=== PATIENT | male | born 1960 | race Caucasian/White ===

== ENCOUNTER 2016-06-27 17:57 | Emergency (ER) | payer OTHER ==
[2016-06-27 17:58] VITALS: BMI 35.9
[2016-06-27 18:18] VITALS: BP 105/69; PULSE 76; RESP 16; TEMP 98.1; O2SAT 97
[2016-06-27] MEDS ORDERED: TDAP Vaccine 0.5 mL Syr IM ONE (18:20)
[2016-06-27] MEDS ORDERED: Amoxicillin-Clav 875-125 mg Tab PO STA (18:20)
--- NOTE | 2016-06-27 18:23 | ED PDOC ---
Arrival/HPI - General Chief Complaint: Lower Extremity Problem/Injury Time Seen by Provider: 06/27/16 18:20 Historian: Patient - History of Present Illness Narrative History of Present Illness (Text): 06/27/16 18:21 55yo male with multiple co morbidities present with complaint of nail puncture to his left foot. States a nail went through his shoes, while working on his garden an hour [employer]. States he quickly pulled out his foot, as soon as he felt the nail puncture. He is not Up to date with his TD booster. Denies any other complaint. Past Medical History - Provider Review Nursing Documentation Reviewed: Yes - Cardiac Hx Cardiac Disorders: Yes Hx Angina: Yes Hx Circulatory Problems: Yes Hx Hypertension: Yes Hx Pacemaker: No Other/Comment: stents X4 - Pulmonary Hx Respiratory Disorders: No - Neurological Hx Neurological Disorder: No - HEENT Hx HEENT Disorder: No - Renal Hx Renal Disorder: No - Endocrine/Metabolic Hx Endocrine Disorders: Yes Hx Diabetes Mellitus Type 2: Yes - Hematological/Oncological Hx Blood Disorders: Yes Hx Anemia: Yes - Integumentary Hx Dermatological Disorder: No - Musculoskeletal/Rheumatological Hx Musculoskeletal Disorders: Yes Hx Back Pain: Yes - Gastrointestinal Hx Gastrointestinal Disorders: Yes Other/Comment: chronic constipation - Genitourinary/Gynecological Hx Genitourinary Disorders: Yes Hx Prostate Cancer: Yes Other/Comment: frequency - Psychiatric Hx Psychophysiologic Disorder: No Hx Depression: No Hx Emotional Abuse: No Hx Physical Abuse: No Hx Substance Use: No - Surgical History Hx Coronary Stent: Yes Other/Comment: monthly back injections - Anesthesia Hx Anesthesia: Yes Hx Anesthesia Reactions: No Hx Malignant Hyperthermia: No - Suicidal Assessment Feels Threatened In Home Enviroment: No Family/Social History - Physician Review Nursing Documentation Reviewed: Yes Family/Social History: Unknown Family HX Smoking Status: Never Smoked Hx Alcohol Use: No Hx Substance Use: No Hx Substance Use Treatment: No Allergies/Home Meds Allergies/Adverse Reactions: Allergies No Known Allergies Allergy (Verified 06/27/16 18:12) Home Medications: Home Meds Medication Instructions Recorded Confirmed Ergocalciferol [Vitamin D] 50,000 iu PO SUN 12/09/11 06/27/16 Isosorbide [Isosorbide] 60 mg PO DAILY 12/09/11 06/27/16 Lisinopril 50 mg PO DAILY 12/09/11 06/27/16 Metoprolol Tartrate [Lopressor] 50 mg PO DAILY 12/09/11 06/27/16 Clopidogrel Hydrogen Sulfate 75 mg PO QAM 01/16/12 01/16/12 [Plavix] Nitroglycerin [Nitroquick] 0.4 mg SL PRN PRN 04/23/12 06/27/16 Simvastatin 40 mg PO HS 04/23/12 06/27/16 Metformin HCl [Glucophage] 1,000 mg PO BID 06/27/16 06/27/16 Review of Systems - Physician Review All systems were reviewed & negative as marked: Yes - Review of Systems Constitutional: Normal Eyes: Normal ENT: Normal Respiratory: Normal Cardiovascular: Normal Gastrointestinal: Normal Genitourinary Male: Normal Musculoskeletal: Normal Skin: Other (Nail puncture) Neurological: Normal Endocrine: Normal Hemo/Lymphatic: Normal Psychiatric: Normal Physical Exam Vital Signs Reviewed: Yes Vital Signs Temp Pulse Resp BP Pulse Ox 06/27/16 18:13 98.1 F 76 16 105/69 97 Temperature: Afebrile Blood Pressure: Normal Pulse: Regular Respiratory Rate: Normal Appearance: Positive for: Well-Appearing, Non-Toxic, Comfortable Pain Distress: None Mental Status: Positive for: Alert and Oriented X 3 - Systems Exam Head: Present: Atraumatic, Normocephalic Pupils: Present: PERRL Extroacular Muscles: Present: EOMI Conjunctiva: Present: Normal Mouth: Present: Moist Mucous Membranes Neck: Present: Normal Range of Motion Respiratory/Chest: Present: Clear to Auscultation, Good Air Exchange. No: Respiratory Distress, Accessory Muscle Use Cardiovascular: Present: Regular Rate and Rhythm, Normal S1, S2. No: Murmurs Abdomen: Present: Normal Bowel Sounds. No: Tenderness, Distention, Peritoneal Signs Back: Present: Normal Inspection Upper Extremity: Present: Normal Inspection. No: Cyanosis, Edema Lower Extremity: Present: Normal Inspection. No: Edema Neurological: Present: GCS=15, CN II-XII Intact, Speech Normal Skin: Present: Warm, Dry, Normal Color, Other (Puncture wound noted on left plantar foot). No: Rashes Psychiatric: Present: Alert, Oriented x 3, Normal Insight, Normal Concentration Disposition/Present on Arrival - Present on Arrival Any Indicators Present on Arrival: No History of DVT/PE: No History of Uncontrolled Diabetes: Yes Urinary Catheter: No History of Decub. Ulcer: No History Surgical Site Infection Following: None - Disposition Have Diagnosis and Disposition been Completed?: Yes Diagnosis: Puncture wound Disposition: HOME/ ROUTINE Disposition Time: 18:25 Patient Plan: Discharge Condition: STABLE Discharge Instructions (ExitCare): Puncture Wound (ED) Additional Instructions: Follow up with your doctor Return to ED for any new or worsening symptoms Prescriptions: Amoxicillin/Clavulanate [Augmentin 875 MG-125 MG] 1 tab PO BID #20 tab Referrals: Jeannette Mullins MD [Staff Provider] - Follow up with primary
== END 2016-06-27 19:11 | disposition home or self-care (01) ==
LOC: ED 17:57
DX: S91.332A Puncture wound without foreign body, left foot, initial encounter (principal); W45.0XXA Nail entering through skin, initial encounter; Y93.89 Activity, other specified; Y92.007 Garden or yard of unspecified non-institutional (private) residence as the place of occurrence of the external cause; Z23 Encounter for immunization

== ENCOUNTER 2016-09-13 02:50 | Emergency (ER) | payer OTHER ==
[2016-09-13 02:51] VITALS: BMI 35.9
[2016-09-13 03:12] VITALS: TEMP 98.4
--- NOTE | 2016-09-13 03:49 | ED PDOC ---
Arrival/HPI - General Chief Complaint: Abdominal Pain Time Seen by Provider: 09/13/16 02:53 - History of Present Illness Narrative History of Present Illness (Text): 09/13/16 03:46 Oscar Gant is a 55 year old male, whose past medical history includes CAD with stents, hypertension, hyperlipidemia, and diabetes, who presents to the Emergency department complaining of upper abdominal discomfort for the past 2 hours. Patient notes he has been fasting all day and ate at 20:30. Patient reports associated nausea and vomiting earlier, none currently. Patients states he took Ibuprofen earlier with relief. Patient denies any fever, chills, chest pain, shortness of breath, diarrhea, urinary symptoms, back pain, neck pain, headache, dizziness, or any other complaints. Time/Duration: 1-3 hours (02:00) Symptom Onset: Gradual Symptom Course: Unchanged Activities at Onset: Rest, Light Context: Home Past Medical History - Provider Review Nursing Documentation Reviewed: Yes - Cardiac Hx Cardiac Disorders: Yes Hx Angina: Yes Hx Circulatory Problems: Yes Hx Hypertension: Yes Hx Pacemaker: No Other/Comment: stents X4 - Pulmonary Hx Respiratory Disorders: No - Neurological Hx Neurological Disorder: No - HEENT Hx HEENT Disorder: No - Renal Hx Renal Disorder: No - Endocrine/Metabolic Hx Endocrine Disorders: Yes Hx Diabetes Mellitus Type 2: Yes - Hematological/Oncological Hx Blood Disorders: Yes Hx Anemia: Yes - Integumentary Hx Dermatological Disorder: No - Musculoskeletal/Rheumatological Hx Musculoskeletal Disorders: Yes Hx Back Pain: Yes - Gastrointestinal Hx Gastrointestinal Disorders: Yes Other/Comment: chronic constipation - Genitourinary/Gynecological Hx Genitourinary Disorders: Yes Hx Prostate Cancer: Yes Other/Comment: frequency - Psychiatric Hx Psychophysiologic Disorder: No Hx Depression: No Hx Emotional Abuse: No Hx Physical Abuse: No Hx Substance Use: No - Surgical History Hx Coronary Stent: Yes Other/Comment: monthly back injections - Anesthesia Hx Anesthesia: Yes Hx Anesthesia Reactions: No Hx Malignant Hyperthermia: No - Suicidal Assessment Feels Threatened In Home Enviroment: No Family/Social History - Physician Review Nursing Documentation Reviewed: Yes Family/Social History: No Known Family HX Smoking Status: Never Smoked Hx Alcohol Use: No Hx Substance Use: No Hx Substance Use Treatment: No Allergies/Home Meds Allergies/Adverse Reactions: Allergies No Known Allergies Allergy (Verified 09/13/16 03:05) Home Medications: Home Meds Medication Instructions Recorded Confirmed Ergocalciferol [Vitamin D] 50,000 iu PO SUN 12/09/11 09/13/16 Isosorbide [Isosorbide] 60 mg PO DAILY 12/09/11 09/13/16 Lisinopril 50 mg PO DAILY 12/09/11 09/13/16 Metoprolol Tartrate [Lopressor] 50 mg PO DAILY 12/09/11 09/13/16 Clopidogrel Hydrogen Sulfate 75 mg PO QAM 01/16/12 09/13/16 [Plavix] Nitroglycerin [Nitroquick] 0.4 mg SL PRN PRN 04/23/12 09/13/16 Simvastatin 40 mg PO HS 04/23/12 09/13/16 Metformin HCl [Glucophage] 1,000 mg PO BID 06/27/16 09/13/16 Review of Systems - Physician Review All systems were reviewed & negative as marked: Yes - Review of Systems Constitutional: Normal Eyes: Normal ENT: Normal Respiratory: Normal. absent: SOB, Cough Cardiovascular: Normal. absent: Chest Pain Gastrointestinal: Abdominal Pain, Nausea, Vomiting. absent: Diarrhea Genitourinary Male: Normal. absent: Dysuria, Frequency, Hematuria, Urinary Output Changes Musculoskeletal: Normal. absent: Back Pain, Neck Pain Skin: Normal. absent: Rash Neurological: Normal. absent: Headache, Dizziness Endocrine: Normal Hemo/Lymphatic: Normal Psychiatric: Normal Physical Exam Vital Signs Reviewed: Yes Vital Signs Temp Pulse Resp BP Pulse Ox 09/13/16 06:26 85 16 130/81 98 09/13/16 03:10 98.4 F 72 14 132/88 100 Temperature: Afebrile Blood Pressure: Normal Pulse: Regular Respiratory Rate: Normal Appearance: Positive for: Well-Appearing, Non-Toxic, Comfortable Pain Distress: None Mental Status: Positive for: Alert and Oriented X 3 - Systems Exam Head: Present: Atraumatic, Normocephalic Pupils: Present: PERRL Extroacular Muscles: Present: EOMI Conjunctiva: Present: Normal Mouth: Present: Moist Mucous Membranes Neck: Present: Normal Range of Motion Respiratory/Chest: Present: Clear to Auscultation, Good Air Exchange. No: Respiratory Distress, Accessory Muscle Use Cardiovascular: Present: Regular Rate and Rhythm, Normal S1, S2. No: Murmurs Abdomen: Present: Normal Bowel Sounds. No: Tenderness, Distention, Peritoneal Signs Back: Present: Normal Inspection Upper Extremity: Present: Normal Inspection. No: Cyanosis, Edema Lower Extremity: Present: Normal Inspection. No: Edema Neurological: Present: GCS=15, CN II-XII Intact, Speech Normal Skin: Present: Warm, Dry, Normal Color. No: Rashes Psychiatric: Present: Alert, Oriented x 3, Normal Insight, Normal Concentration Medical Decision Making ED Course and Treatment: 09/13/16 03:46 Impression: 55 year old male complaining of upper abdominal discomfort with nausea and vomiting. Differential Diagnosis include but are not limited to: gastritis Plan: -- Labs, lipase -- Urinalysis -- IV fluids -- Reassess and disposition Progress Notes: 09/13/16 06:25 On re-evaluation, the patient feels better and is in no acute distress. I have discussed the results and plan with the patient, who expresses understanding. Patient in agreement with plan to discharged home. Patient is stable for discharge. Patient was instructed to follow up with physician/clinic in 1-2 days or return if symptoms worsen or new concerning symptoms arise. - Lab Interpretations Lab Results: 09/13/16 04:10 09/13/16 04:10 Lab Results 09/13/16 04:18: Urine Color Yellow, Urine Appearance Clear, Urine pH 5.5, Ur Specific [place] >= 1.030, Urine Protein Negative, Urine Glucose (UA) Negative, Urine Ketones Trace H, Urine Blood Negative, Urine Nitrate Negative, Urine Bilirubin Negative, Urine Urobilinogen 0.2, Ur Leukocyte Esterase Negative 09/13/16 04:10: WBC 8.1, RBC 6.07, Hgb 11.7 L, Hct 36.1 L, MCV 59.5 L, MCH 19.3 L, MCHC 32.4, RDW 18.3 H, Plt Count 228 09/13/16 04:10: Sodium 136, Potassium 3.9, Chloride 99, Carbon Dioxide 28, Anion Gap 13, BUN 20, Creatinine 1.0, Est GFR ( Amer) > 60, Est GFR (Non- Af Amer) > 60, Random Glucose 142 H, Calcium 9.1, Total Bilirubin 0.5, AST 26, ALT 38, Alkaline Phosphatase 53, Total Protein 7.0, Albumin 3.8, Globulin 3.2, Albumin/Globulin Ratio 1.2, Lipase 41 I have reviewed the lab results: Yes - Medication Orders Current Medication Orders: Sodium Chloride (Sodium Chloride 0.9%) 1,000 mls @ 100 mls/hr IV .Q10H [id number] Last Admin: 09/13/16 04:20 Dose: 100 mls/hr - Scribe Statement The provider has reviewed the documentation as recorded by the Scribe Julisa Denis All medical record entries made by the Scribe were at my direction and personally dictated by me. I have reviewed the chart and agree that the record accurately reflects my personal performance of the history, physical exam, medical decision making, and the department course for this patient. I have also personally directed, reviewed, and agree with the discharge instructions and disposition. Disposition/Present on Arrival - Present on Arrival Any Indicators Present on Arrival: No History of DVT/PE: No History of Uncontrolled Diabetes: Yes Urinary Catheter: No History of Decub. Ulcer: No History Surgical Site Infection Following: None - Disposition Have Diagnosis and Disposition been Completed?: Yes Diagnosis: Gastritis Disposition: HOME/ ROUTINE Disposition Time: 06:20 Patient Plan: Discharge Patient Problems: Current Active Problems Problem Status Onset Gastritis Acute Condition: GOOD Discharge Instructions (ExitCare): Gastritis (ED) Additional Instructions: Maintain bland diet/medication as prescribed/follow up with your doctor as needed/any recurrent worsening symptoms return to the emergency room Prescriptions: Ondansetron [Zofran Odt] 4 mg PO Q6 PRN #9 odt PRN Reason: Nausea/Vomiting
[2016-09-13] MEDS ORDERED: Sodium Chloride 0.9% 1,000 ML IV SCH (04:00)
[2016-09-13 04:21] LABS: HEMATOCRIT 36.1 % (42.0-52.0); MEAN CELL VOLUME 59.5 fL (80.0-105.0); MEAN CORPUSCULAR HEMOGLOBIN 19.3 pg (25.0-35.0); MEAN CORPUSCULAR HGB CONC 32.4 g/dl (31.0-37.0); PLATELET COUNT 228 10^3/uL (120.0-450.0); RED CELL DISTRIBUTION WIDTH 18.3 % (11.5-14.5); WHITE BLOOD COUNT 8.1 10^3/ul (4.5-11.0)
[2016-09-13 04:30] LABS: PH,URINE 5.5 (4.7-8.0); URINE BILIRUBIN NEGATIVE (NEGATIVE); URINE BLOOD NEGATIVE (NEGATIVE); URINE GLUCOSE (UA) NEGATIVE (NEGATIVE); URINE KETONE TRACE mg/dL (NEGATIVE); URINE LEUKOCYTE ESTERASE NEGATIVE Leu/uL (NEGATIVE); URINE UROBILINOGEN 0.2 E.U./dL (<1 E.U./dL)
[2016-09-13 04:31] LABS: URINE APPEARANCE CLEAR (CLEAR); URINE COLOR YELLOW (YELLOW); URINE PROTEIN NEGATIVE mg/dL (<30 mg/dL)
[2016-09-13 04:41] LABS: ALB/GLOB RATIO 1.2 (1.1-1.8); ALKALINE PHOSPHATASE 53 U/L (38-133); ALT/SGPT 38 U/L (7-56); AST/SGOT 26 U/L (15-59); BILIRUBIN,TOTAL 0.5 mg/dL (0.2-1.3); BLOOD UREA NITROGEN 20 mg/dL (7-21); CALCIUM 9.1 mg/dL (8.4-10.5); CARBON DIOXIDE 28 mmol/L (21-33); CHLORIDE 99 mmol/L (98-107); GFR AFRICAN-AMERICAN > 60; GLUCOSE,RANDOM 142 mg/dL (70-110); LIPASE 41 U/L (23-300); POTASSIUM 3.9 mmol/L (3.6-5.0); SODIUM 136 mmol/L (132-148)
[2016-09-13 06:26] VITALS: BP 130/81; PULSE 85; RESP 16; O2SAT 98
== END 2016-09-13 06:40 | disposition home or self-care (01) ==
LOC: ED 02:50
DX: K29.70 Gastritis, unspecified, without bleeding (principal)
CPT/HCPCS: 80053; 81003; 83690; 85027; 99283; J7040

== ENCOUNTER 2018-03-26 18:53 | Emergency (ER) | payer OTHER ==
[2018-03-26 19:05] VITALS: BMI 33.9
[2018-03-26 19:12] VITALS: RESP 16
--- NOTE | 2018-03-26 19:37 | ED PDOC ---
Arrival/HPI - General Chief Complaint: Syncope Time Seen by Provider: 03/26/18 18:55 Historian: Patient, Family - History of Present Illness Narrative History of Present Illness (Text): 03/26/18 19:33 57 y/o M w/ h/o HTN, HLD s/p 5 stents, DM II presenting to the Emergency Department s/p syncopal epiosde that occurred earlier today. Per the patient's son, the patient was last seen at baseline at 2PM. The patient states he had a dental procedure later on in the day and felt dizzy when returning home. He reports feeling dizzy with gradual onset of a global headache while sitting on couch that persisted when sitting at the dining room table. Per family, the patient was noted to have his eyes rolling back resulting in a syncopal episode that lasted for several seconds. He also reports bilateral arm parenthesias after the syncopal episode. The patient was easily arousable without any post- ictal period, denying head injury, neck pain or urinary incontinence. He denies receiving any analgesics for his dental procedure. He denies fevers, chills, chest pain, shortness of breath, abdominal pain, arm pain, visual disturbances, dysuria/hematuria. PCP: Dr. Mullins Specialist: Dr. Dylan Braswell (cardiology) Time/Duration: Prior to Arrival Symptom Onset: Sudden Symptom Course: Improving Activities at Onset: Rest Context: Home Past Medical History - Provider Review Nursing Documentation Reviewed: Yes - Travel History Have you recently traveled outside [place] w/in the past 3 mons?: No - Cardiac Hx Cardiac Disorders: Yes Hx Angina: Yes Hx Circulatory Problems: Yes Hx Hypertension: Yes Hx Pacemaker: No Other/Comment: stents X5 - Pulmonary Hx Respiratory Disorders: No - Neurological Hx Neurological Disorder: No - HEENT Hx HEENT Disorder: No - Renal Hx Renal Disorder: No - Endocrine/Metabolic Hx Endocrine Disorders: Yes Hx Diabetes Mellitus Type 2: Yes - Hematological/Oncological Hx Blood Disorders: Yes Hx Anemia: Yes - Integumentary Hx Dermatological Disorder: No - Musculoskeletal/Rheumatological Hx Musculoskeletal Disorders: Yes Hx Back Pain: Yes - Gastrointestinal Hx Gastrointestinal Disorders: Yes Other/Comment: chronic constipation - Genitourinary/Gynecological Hx Genitourinary Disorders: Yes Hx Prostate Cancer: Yes Other/Comment: frequency - Psychiatric Hx Psychophysiologic Disorder: No Hx Depression: No Hx Emotional Abuse: No Hx Physical Abuse: No Hx Substance Use: No - Surgical History Hx Coronary Stent: Yes Other/Comment: monthly back injections - Anesthesia Hx Anesthesia: Yes Hx Anesthesia Reactions: No Hx Malignant Hyperthermia: No - Suicidal Assessment Feels Threatened In Home Enviroment: No Family/Social History - Physician Review Nursing Documentation Reviewed: Yes Family/Social History: Unknown Family HX Smoking Status: Never Smoked Hx Alcohol Use: No Hx Substance Use: No Hx Substance Use Treatment: No Allergies/Home Meds Allergies/Adverse Reactions: Allergies No Known Allergies Allergy (Verified 09/13/16 03:05) Home Medications: Home Meds Medication Instructions Recorded Confirmed Ergocalciferol [Vitamin D] 50,000 iu PO SUN 12/09/11 09/13/16 Isosorbide 60 mg PO DAILY 12/09/11 09/13/16 Metoprolol Tartrate [Lopressor] 50 mg PO DAILY 12/09/11 09/13/16 RX: Lisinopril 50 mg PO DAILY 12/09/11 09/13/16 Clopidogrel Hydrogen Sulfate 75 mg PO QAM 01/16/12 09/13/16 [Plavix] Nitroglycerin [Nitroquick] 0.4 mg SL PRN PRN 04/23/12 09/13/16 RX: Simvastatin 40 mg PO HS 04/23/12 09/13/16 RX: Metformin HCl [Glucophage] 1,000 mg PO BID 06/27/16 09/13/16 Review of Systems - Physician Review All systems were reviewed & negative as marked: Yes - Review of Systems Eyes: absent: Vision Changes Respiratory: absent: SOB Cardiovascular: absent: Chest Pain, Palpitations, Edema Gastrointestinal: absent: Abdominal Pain, Stool Changes, Nausea, Vomiting Genitourinary Male: absent: Dysuria, Hematuria Musculoskeletal: absent: Back Pain, Neck Pain Neurological: Headache, Dizziness. absent: Gait Changes, Speech Changes, Facial Droop, Disequilibrium, Seizure Psychiatric: absent: Anxiety Physical Exam Vital Signs Reviewed: Yes Vital Signs Pulse Resp BP Pulse Ox 03/26/18 19:05 69 16 136/88 96 Temperature: Afebrile Blood Pressure: Normal Pulse: Regular Respiratory Rate: Normal Appearance: Positive for: Well-Appearing, Non-Toxic, Comfortable Mental Status: Positive for: Alert and Oriented X 3 - Systems Exam Head: Present: Atraumatic, Normocephalic Pupils: Present: PERRL Extroacular Muscles: Present: EOMI Conjunctiva: Present: Normal Mouth: Present: Moist Mucous Membranes Neck: Present: Normal Range of Motion Respiratory/Chest: Present: Clear to Auscultation, Good Air Exchange. No: Respiratory Distress Cardiovascular: Present: Regular Rate and Rhythm, Normal S1, S2 Abdomen: Present: Normal Bowel Sounds. No: Tenderness, Distention, Peritoneal Signs Upper Extremity: Present: Normal Inspection. No: Cyanosis, Edema Lower Extremity: Present: Normal Inspection. No: Edema Neurological: Present: GCS=15, CN II-XII Intact, Speech Normal, Motor Func Grossly Intact, Normal Sensory Function, Normal Cerebellar Funct (Normal finger to nose), Memory Normal Skin: Present: Warm, Dry, Normal Color. No: Rashes Psychiatric: Present: Alert, Oriented x 3, Normal Insight, Normal Concentration Medical Decision Making ED Course and Treatment: 03/26/18 20:00 Impression 57yo M w/ syncopal episode Differential Diagnoses Include But Are Not Limited To: --CVA/TIA --Vasovagal episode --Orthostatic Hypotension Plan --Labs --NSS --EKG --CXR --UA --CTH --Reassess & disposition Progress Notes 03/26/18 20:32 Labs reviewed with slight hyperkalemia of 5.5 noted. Troponin negative. Pending CTH. 03/26/18 20:48 Discussion with patient regarding elevated potassium and reports taking a potassium supplement every other day. EKG shows no changes. Will hold off on hyperkalemic protocol for now. Blood pressure noted to be 91/55. Fluid bolus ordered with orthostatics soon to follow. 03/26/18 21:[address] Mullins who is aware and agrees with the plan. She accepts patient into her service and requests Dr. Dylan Braswell for cardiology consult. 03/26/18 21:50 Leaving Against Medical Advice (AMA): The patient is choosing to leave against medical advice. I have personally explained to the patient that choosing to do so may result in permanent bodily harm, disability, or . I have discussed at great length that without further evaluation and monitoring there may be unforeseen circumstances and/or deterioration causing permanent bodily harm or as a result of their choic e. The patient is alert, oriented, and shows the mental capacity to make clear decisions regarding the his health care at this time. The patient continues to wish to leave against medical advice. In light of the patients decision to leave against medical advice, follow-up has been arranged and the patient is aware of the importance to following up as instructed. The patient has been advised that they should return to the emergency room immediately if they change their mind at any time, or if their condition begins to change or worsen in any way. - Lab Interpretations Lab Results: 03/26/18 19:38 03/26/18 19:38 Lab Results 03/26/18 20:00: D-Dimer, Quantitative < 200 03/26/18 19:38: Sodium 137, Potassium 5.5 H, Chloride 105, Carbon Dioxide 23, Anion Gap 15, BUN 21, Creatinine 1.1, Est GFR ( Amer) > 60, Est GFR (Non- Af Amer) > 60, Random Glucose 134 H, Calcium 9.2, Total Bilirubin 0.5, AST 32, ALT 22, Alkaline Phosphatase 47, Troponin I < 0.01, NT-Pro-B Natriuret Pep 48.3, Total Protein 7.6, Albumin 4.2, Globulin 3.4, Albumin/Globulin Ratio 1.2 03/26/18 19:38: PT 11.0, INR 0.97, APTT 23.6 L 03/26/18 19:38: WBC 5.8, RBC 6.43 H, Hgb 12.6 L, Hct 38.9 L, MCV 60.5 L, MCH 19.6 L, MCHC 32.4, RDW 18.0 H, Plt Count 255, Gran % 43.4 L, Lymph % (Auto) 46.7 H, Esmeralda % (Auto) 6.6 H, Eos % (Auto) 2.8, Baso % (Auto) 0.5, Gran # 2.51, Lymph # (Auto) 2.7, Esmeralda # (Auto) 0.4, Eos # (Auto) 0.2, Baso # (Auto) 0.03, ESR 6 I have reviewed the lab results: Yes - RAD Interpretation Narrative RAD Interpretations (Text): EXAM: CT Head without Intravenous Contrast. Electronically signed on Mar 26, 2018 9:20:25 PM EST by: Maverick Ruth M.D. IMPRESSION: Unremarkable CT of the brain Radiology Orders: 03/26/18 19:17 HEAD W/O CONTRAST [CT] Stat 03/26/18 19:25 CHEST PORTABLE [RAD] Stat Field Hockey Coach: Radiologist Disposition/Present on Arrival - Present on Arrival Any Indicators Present on Arrival: Yes History of DVT/PE: No History of Uncontrolled Diabetes: Yes Urinary Catheter: No History of Decub. Ulcer: No History Surgical Site Infection Following: None - Disposition Have Diagnosis and Disposition been Completed?: Yes Diagnosis: Syncope Disposition: AGAINST MEDICAL ADVICE Disposition Time: 21:00 Patient Plan: Other Condition: IMPROVED Discharge Instructions (ExitCare): Syncope (ED) Print Language: SWEDISH Referrals: Jeannette Mullins MD [Primary Care Provider] - Follow up with primary Dylan Braswell MD [Staff Provider] - Follow up with primary Forms: [employer] (Armenian)
[2018-03-26 19:41] LABS: BASO # 0.03 K/mm3 (0.0-2.0); BASO % 0.5 % (0.0-3.0); EOS # 0.2 (0.0-0.7); EOS % 2.8 % (1.5-5.0); GRAN # 2.51 (1.4-6.5); GRAN % 43.4 % (50.0-68.0); HEMOGLOBIN 12.6 g/dL (14.0-18.0); LYMPH # 2.7 (1.2-3.4); LYMPH % 46.7 % (22.0-35.0); MEAN CELL VOLUME 60.5 fl (80.0-105.0); MEAN CORPUSCULAR HEMOGLOBIN 19.6 pg (25.0-35.0); MEAN CORPUSCULAR HGB CONC 32.4 g/dl (31.0-37.0); MONO # 0.4 (0.1-0.6); MONO % 6.6 % (1.0-6.0); PLATELET COUNT 255 10^3/uL (120.0-450.0); RBC 6.43 10^6/uL (3.5-6.1); WHITE BLOOD COUNT 5.8 10^3/uL (4.5-11.0)
[2018-03-26 19:51] LABS: INR 0.97; PARTIAL THROMBOPLASTIN TIME 23.6 Seconds (25.1-36.5)
[2018-03-26 19:59] LABS: ALB/GLOB RATIO 1.2 (1.1-1.8); ALBUMIN 4.2 g/dL (3.0-4.8); ALT/SGPT 22 U/L (7-56); AST/SGOT 32 U/L (17-59); BLOOD UREA NITROGEN 21 mg/dL (7-21); CALCIUM 9.2 mg/dL (8.4-10.5); GFR NON-AFRICAN AMERICAN > 60
[2018-03-26 20:03] LABS: B-TYPE NATRIURETIC PEPTIDE 48.3 pg/mL (0-450)
[2018-03-26 20:04] LABS: TROPONIN I < 0.01 ng/mL
[2018-03-26] MEDS ORDERED: Albuterol 0.083% Inhal Sol (2.5 mg/3 mL) UD INH STA (20:28)
[2018-03-26] MEDS ORDERED: Sodium Bicarbonate (8.4%) 50 Meq Syringe IVP ONE (20:28)
[2018-03-26] MEDS ORDERED: Sodium Chloride 0.9% 1,000 ML IV STA (20:44)
[2018-03-26 20:46] LABS: ERYTHROCYTE SEDIMENTATION RATE 6 mm/hr (0.00-15.0)
[2018-03-26 20:52] VITALS: PULSE 61; TEMP 97.6; O2SAT 94
[2018-03-26 21:17] VITALS: BP 95/57
--- NOTE | 2018-03-27 09:17 | CARD ---
APPROVED REPORT Date of service: 03/26/2018 EKG Measurement Heart [id number] <Conclusion> Normal sinus rhythm PRWP LAD No change
--- NOTE | 2018-03-27 09:58 | CT ---
Date of service: 03/26/2018 PROCEDURE: CT HEAD WITHOUT CONTRAST. HISTORY: syncopal epsiodes COMPARISON: None available. TECHNIQUE: Axial computed tomography images were obtained through the head/brain without intravenous contrast. Supplemental Coronal and Sagittal projections created and reviewed. Radiation dose: Total exam DLP = 1368.04 mGy-cm. This CT exam was performed using one or more of the following dose reduction techniques: Automated exposure control, adjustment of the mA and/or kV according to patient size, and/or use of iterative reconstruction technique. FINDINGS: HEMORRHAGE: No intracranial hemorrhage. BRAIN: No mass effect or edema. No atrophy or chronic microvascular ischemic changes. VENTRICLES: Unremarkable. No hydrocephalus. CALVARIUM: Unremarkable. PARANASAL SINUSES: Unremarkable as visualized. No significant inflammatory changes. MASTOID AIR CELLS: Unremarkable as visualized. No inflammatory changes. OTHER FINDINGS: None. IMPRESSION: No acute intracranial abnormalities. No significant findings to account for the clinical presentation. Concordant results (preliminary interpretation) provided by [employer]. Procedure Completed: 20:55. Preliminary Report: Dictated and Authenticated: 09:20. Final Interpretation: 09:55. March 27, 2018
--- NOTE | 2018-03-27 11:09 | RAD ---
Date of service: 03/26/2018 HISTORY: Syncopal episodes. COMPARISON: 01/16/2012. FINDINGS: LUNGS: No active pulmonary disease. PLEURA: No significant pleural effusion identified, no pneumothorax apparent. CARDIOVASCULAR: No atherosclerotic calcification present Normal. OSSEOUS STRUCTURES: No significant abnormalities. VISUALIZED UPPER ABDOMEN: Normal. OTHER FINDINGS: None. IMPRESSION: No active disease. No significant interval change compared to the prior examination(s).
== END 2018-03-26 22:06 | disposition left against medical advice (07) ==
LOC: ED 18:53
DX: R55 Syncope and collapse (principal); I10 Essential (primary) hypertension; E78.5 Hyperlipidemia, unspecified; E11.9 Type 2 diabetes mellitus without complications; Z95.5 Presence of coronary angioplasty implant and graft
CPT/HCPCS: 70450; 71045; 80053; 83880; 84484; 85025; 85378; 85610; 85651; 85730; 93005; 96360; 99285; J7030